=== PATIENT | female | born 1965 | race Caucasian/White ===

== ENCOUNTER → 2016-11-06 | Outpatient (CLI) | payer BC ==
[~2016-11-06] MED LIST: AMLO10TA4 PO; DOCU100T10 PO; FERR325C PO; HYDR-4246 PO; IBUP-1547 PO; TAMO20TA4 PO
== END ==
LOC: WC.BC 13:26
PROVIDERS: ATTEND Family Medicine
DX: C50.912 Malignant neoplasm of unspecified site of left female breast (principal); Z08 Encounter for follow-up examination after completed treatment for malignant neoplasm
CPT/HCPCS: 77062; G0204

== ENCOUNTER 2016-11-07 05:33 | Day surgery (SDC) | payer BC ==
[2016-11-07] VITALS (27 sets, daily range): BP systolic 122–158; BP diastolic 69–91; PULSE 49–76; RESP 12–18; TEMP 96.6–98.2; O2SAT 94–100; Ht 170.2 cm; Wt 55.0 kg
[~2016-11-07] VITALS: Ht 170.2 cm; Wt 55.0 kg
[~2016-11-07 05:33] MED LIST changes: -HYDR-4246 PO; -IBUP-1547 PO
[2016-11-07 06:26] LABS: BLOOD, URINE 2+ (NEGATIVE); COLOR,URINE YELLOW (YELLOW); LEUKOCYTE ESTERASE ,URINE NEGATIVE (NEGATIVE); NITRITE,URINE NEGATIVE (NEGATIVE); UROBILINOGEN,URINE 0.2 EU/DL (NORMAL)
[2016-11-07 06:27] LABS: BASOPHILS % (AUTO) 0.5 % (0-2); HCT - HEMATOCRIT 40.9 % (36-46); HGB - HEMOGLOBIN 13.5 GM/DL (12-16); LYMPHOCYTES # (AUTO) 1.5 T/MM3 (1-4.8); LYMPHOCYTES % (AUTO) 35.2 % (23-45); MEAN CORPUSCULAR HGB 30.1 UUG (26-34); MEAN CORPUSCULAR VOLUME 91.3 UM3 (80-100); MEAN PLATELET VOLUME 9.9 UM3 (9.4-12.4); MONOCYTES # (AUTO) 0.2 T/MM3 (0-0.8); MONOCYTES % (AUTO) 4.5 % (0-9.0); NEUTROPHILS #(AUTO)-ABSOLUTE 2.5 T/MM3 (1.8-7.7); NEUTROPHILS % (AUTO) 58.8 % (33-66); RED BLOOD COUNT 4.48 M/MM3 (4.00-5.20); WBC - WHITE BLOOD COUNT 4.2 T/MM3 (4.5-11.0)
[2016-11-07] MEDS: LR 1,000 ML IV SCH ×2 (06:32→10:06)
[2016-11-07 06:39] LABS: BACTERIA,URINE TRACE (NEGATIVE); RBC,URINE NONE SEEN /HPF (0-3); WBC,URINE NONE SEEN /HPF (0-5)
[2016-11-07 06:53] LABS: ALBUMIN/GLOBULIN RATIO 1.3 RATIO (1.1-2.2); ALKALINE PHOSPHATASE 46 U/L (38-126); ALT (SGPT) 27 U/L (9-52); ANION GAP 11 MEQ/L (5-15); AST (SGOT) 33 U/L (14-36); BUN/CREATININE RATIO 21 RATIO (6-26); CHLORIDE 104 MEQ/L (98-107); CO2 - CARBON DIOXIDE 28 MEQ/L (22-30); CREATININE 0.7 MG/DL (0.7-1.2); GLOMERULAR FILTRATION RATE 88; GLUCOSE 105 MG/DL (65-110); POTASSIUM 4.4 MEQ/L (3.6-5); SODIUM 143 MEQ/L (134-144)
[2016-11-07] MEDS ORDERED: LIDOCAINE 1% (10mg/ml) 2ml SDV INJ ONE (07:00)
[2016-11-07] MEDS ORDERED: BUPIVACAINE 0.25% (2.5mg/ml) INJ 30ml SDV ONE (07:13)
--- NOTE | 2016-11-07 07:16 | ANESPREOP ---
Anesthesia Record Date and Time DATE: 11/07/16 TIME: 07:14 Pre-Op Diagnosis menorrhagia, thickened endometrium Proposed Surgical Procedure ROBOTIC LAP HYST Allergies: Coded Allergies: erythromycin base (Verified Allergy, Intermediate, HIVES, 11/07/16) azithromycin (Verified Allergy, Unknown, HIVES, 11/07/16) Ht/Wt/BMI Height: 5 ' 7.00 " Weight: 55.000 kg BMI: 19.0 kg/m2 Vital Signs Date Time Temp Pulse Resp B/P Pulse Ox O2 Delivery O2 Flow Rate FiO2 11/07/16 06:07 98.2 76 13 130/90 100 Room Air Medications Inpatient Medications Current Medications Medications (Trade) Dose Ordered Sig/Abram Start Time Stop Time Status Last Admin Dose Admin Lactated Ringer's (Lactated Ringers) 1,000 ml @ 100 mls/hr Q10H 11/07/16 07:00 11/07/16 06:32 100 MLS/HR Amlodipine Besylate (Norvasc) 10 Mg Tablet, 10 MG PO HS, (Reported) Last Taken: on 11/06/16 1800 Docusate Sodium (Stool Softener) 100 Mg Tablet , 1 TAB PO DAILY, (Reported) Last Taken: on 11/06/16 1800 Ferrous Sulfate (Iron) 325 Mg Capsule.er, 1 TAB PO DAILY, (Reported) BEST WITH FOOD. Last Taken: on 11/06/16 0800 Tamoxifen Citrate (Tamoxifen Citrate) 20 Mg Tablet, 1 TAB PO DAILY, (Reported) Last Taken: on 11/06/16 1800 Currently on Beta Herb: No Medical/Surgical History Anesthesia PMH: Reports: *Hypertension, Arthritis, Cancer (L BREAST CA), Denies : *Diabetes, Anesthesia Reactions ( NO AIRWAY ISSUES KNOWN-N&V), Clotting Problems, Glaucoma, Malignant Hyperthermia, Renal Disease, Sleep Apnea, Thyroid Disease Smoking Status: Never smoker Use Chewing Tobacco?: No Second Hand Exposure: No Substance Use Type: does not use Alcohol Intake: none HX of Last Menstrual Period: OCTOBER 2016 Past Surgical History Orthopedic Surgeries: Yes - L SHOULDER REPOSITION Abdominal Surgeries: Genitourinary Surgeries: Cardiac Surgeries: Endocrine Surgeries: Reproductive Surgeries: Yes - L BREAST LUMPECTOMY Neurological Surgeries: Ear Surgeries: Nose Surgeries: Throat Surgeries: Other Surgeries: Yes - L BREAST LUMPECTOMY Anesthesia Adverse Reactions: FOUND nausea and vomiting Family Hx of Anesthesia Advers: none Hx of Motion Sickness: Yes Pertinent Findings Laboratory Tests 11/07/16 06:03 11/07/16 06:08 Test 11/07/16 05:42 Urine Test Negative (NEGATIVE) EKG Rhythm: Sinus Bradycardia Physical Exam Respiratory: Bilat breath sounds equal, Lungs clear Cardiovascular: FOUND Regular rate, rhythm, FOUND No murmur Airway Assessment Mallampati Score: I TMD: 3 Fingerbreadths ASA: 2 Plan Anesthesia Plan: GETA Discussion Discussed risks/options/alternatives of anesthesia and questions answered. Patient consents. Nursing pain assessment noted. Present: Spouse Attestation Statement Prior to the delivery of any anesthetic medication, I examined the patient, developed the plan, obtained the patient's consent and discussed the risk and benefits of the procedure with the patient/guardian. ISA JACKSON CRNA Nov 07, 2016 07:16
[2016-11-07] MEDS ORDERED: MIDAZOLAM 2mg/2ml INJECTION IV ONE (07:30)
[2016-11-07] MEDS ORDERED: SCOPOLAMINE 1.5 MG PATCH TD ONE (07:30)
[2016-11-07] MEDS ORDERED: FENTANYL 250mcg/5ml INJECTION ONE (07:38)
[2016-11-07] MEDS ORDERED: LACRI-LUBE EYE OINT 3.5 G TUBE ONE (07:56)
[2016-11-07] MEDS ORDERED: LIDOCAINE (2%) 100 MG/5 ML PF SYRINGE IV ONE (07:56)
[2016-11-07] MEDS ORDERED: CEFAZOLIN 1 GRAM INJECTION IV ONE (08:00)
[2016-11-07] MEDS ORDERED: DEXAMETHASONE 4mg/ml - 1ml INJECTION ONE (08:07)
[2016-11-07] MEDS ORDERED: GLYCOPYRROLATE 0.4mg/2ml INJECTION ONE (08:07)
[2016-11-07] MEDS ORDERED: ONDANSETRON 4mg/2ml INJECTION ONE (09:36)
[2016-11-07] MEDS ORDERED: D5LR 1,000 ML IV SCH ×2 (09:46→15:45)
--- NOTE | 2016-11-07 09:49 | GYNOPNOTE1 ---
CERTIFIED MEDICINE AIDE Postoperative Note Date of Operation: 11/07/16 Preoperative Diagnosis: Menorrhagia Preoperative Dx Comments h/o breast cancer Taking tamoxifen Thickened endometrium Postoperative Diagnosis: Same as Preoperative Postoperative Dx Comments Enlarged gallbladder Hysterectomy: RALH BSO Surgeon: Codey Irvin MD Anesthesia Provider: Ian Perez CRNA Anesthesia Type: general Complications: None Estimated Blood Loss: 50 CODEY IRVIN MD Nov 07, 2016 09:49
[2016-11-07] MEDS ORDERED: MORPHINE SULFATE 4 MG SYRINGE IV PRN (10:00)
[2016-11-07] MEDS ORDERED: METOCLOPRAMIDE 10mg/2ml INJECTION IV PRN (10:00)
[2016-11-07] MEDS ORDERED: IBUPROFEN 800 MG TABLET PO PRN (10:00)
[2016-11-07] MEDS ORDERED: ONDANSETRON 4mg/2ml INJECTION IV PRN (10:00)
[2016-11-07] MEDS ORDERED: HYDROMORPHONE 2mg/ml INJECTION IV PRN (10:15)
--- NOTE | 2016-11-07 10:28 | ANESPO ---
Post-Op Note Date 11/07/16 Time: 10:27 Status Pt Participated in Evaluation: Pt participated in person Vital Signs Date Time Temp Pulse Resp B/P Pulse Ox O2 Delivery O2 Flow Rate FiO2 11/07/16 10:20 16 11/07/16 10:05 55 134/79 98 Room Air 11/07/16 09:48 97.2 Respiratory Function: Airway patent, Regular respirations Cardiovascular Function: Regular pulse Mental Status: Alert/oriented Pain Level Intensity: 5 (medicated in pacu) Hydration: IV infusing Complications during Recovery None apparent Follow-Up Instructions Instructions Per Surgeon PARVEZ ROTMHAN CRNA Nov 07, 2016 10:28
[2016-11-07] MEDS: HYDROCODONE/APAP 5 mg/325 mg TABLET PO PRN ×2 (11:04→15:13)
--- NOTE | 2016-11-07 11:19 | NUR ---
Heart rate Pts heart rate 50-60bpms. Pts HR was 50-60s before Pt got to me. Ori Irwin RN contacted at this time to verify if she had notified Dr. Irvin of Pts heart rate. Ori verified she notified Dr. Irvin about Pts heart rate before she transferred Pt to floor. Will continue to monitor.
--- NOTE | 2016-11-07 11:33 | NUR ---
Admit Pt transferred self from cart to bed. VS stable on RA. Pt denies nausea at this time. Pt rates pain a 5/10, PO Oceana was given prior to Pt being transferred to [place]. Family in room at time of transfer. Side rails up X2, call light w/in reach.
[2016-11-07] MEDS ORDERED: SIMETHICONE 80 MG CHEWABLE TABLET PO SCH (13:00)
[2016-11-07 15:14] LABS: HGB - HEMOGLOBIN 12.8 GM/DL (12-16)
--- NOTE | 2016-11-07 17:42 | GSPOSTPN ---
INTERNET CONSULTANT Post Op Progress Note 11/07/16 Post Op Check Pain: Controlled Voiding: Voiding Nausea and Vomiting: No Nausea/Vomiting Ambulating: Yes Vital Signs Date Time Temp Pulse Resp B/P Pulse Ox O2 Delivery O2 Flow Rate FiO2 11/07/16 16:18 97.7 55 16 145/75 100 Room Air Urine Output: Good General: Alert and Oriented Abdomen: Soft, Non-distended Incision: Clean/Dry/Intact Extremity Assessment: Non-tender Laboratory Item Value Date Time Hemoglobin 12.8 GM/DL 11/07/16 1506 (1) Status post laparoscopic hysterectomy DC and F/U in 1-2 weeks CODEY JONES MD Nov 07, 2016 17:42
[2016-11-07] MEDS ORDERED: HYDR-4246 PO (17:44)
[2016-11-07] MEDS ORDERED: IBUP-1547 PO (17:44)
--- NOTE | 2016-11-07 18:16 | NUR ---
Discharge Pt discharged at this time via ambulatory through the main entrance in the [facility]. VS stable on RA. Prescription was sent with Pt to take to preferred pharmacy. Discharge packet and instructions given to Pt. This RN discussed medications, diet, activity, restrictions and follow up appt. IV catheter was DC'd prior to discharge, catheter tip intact.
[2016-11-08] MEDS ORDERED: DOCUSATE CALCIUM 240 MG CAPSULE PO SCH (09:00)
--- NOTE | 2016-11-08 09:11 | OPNOTEF ---
DATE OF PROCEDURE 11/07/2016 PREOPERATIVE DIAGNOSES 1. Prolonged bleeding. 2. Thickened endometrium. 3. History of breast cancer, currently taking tamoxifen. POSTOPERATIVE DIAGNOSES 1. Prolonged bleeding. 2. Thickened endometrium. 3. History of breast cancer, currently taking tamoxifen. PROCEDURE Robotic-assisted laparoscopic hysterectomy and bilateral salpingo-oophorectomy. SURGEON Dr. Wendy Irvin. ANESTHESIA General endotracheal by Ian Perez CRNA COMPLICATIONS None. EBL 50 ml FINDINGS Mildly enlarged uterus with normal-appearing adnexa. Her cervix was large and parous. Her cervix was slightly dilated and there appeared to be tissue starting to come through the os. I had previously done an endometrial biopsy and excision of tissue that was coming through the cervix in the office. This was all benign. Her liver edge appeared normal. Her gallbladder appeared enlarged. Her cecum was adhesed to the right sidewall. The appendix appeared normal. She had redundant sigmoid colon in the posterior cul-de-sac. PROCEDURE The patient was taken to the operating room where anesthesia was obtained. She was placed in the lithotomy position and prepared and draped in the normal sterile fashion. A Pimentel catheter was placed in the bladder. An open-sided speculum was placed in the vagina. The anterior cervix was grasped with an Allis. The uterus sounded to 10 cm, so a 10 cm tip was chosen for the arch manipulator as well as the 4 cm cup. A udytlp-[id number] of 0 Vicryl was placed on the cervix for retraction. The cervix was dilated to 19-Norwegian. The arch manipulator was threaded through the cervix and secured into place. All other instruments were removed from the vagina. The patient's legs were lowered, gloves were changed and attention was turned to the abdomen. All skin incisions were injected with 0.25% Marcaine prior to incision. A 12 mm supraumbilical incision was made and a Veress needle was placed. A hanging drop confirmed intraabdominal placement. The abdomen was insufflated with CO2. A 12 mm bladeless trocar was placed and camera again confirmed intraabdominal placement. The patient was placed in a small amount of Trendelenburg. 8-mm trocars were placed bilaterally approximately 10 cm off the midline and slightly inferior under direct visualization. An 8 mm catering administrative assistant port was placed in the left upper quadrant also under direct visualization. The patient was placed in steep Trendelenburg. The bowels were swept out of the posterior cul-de-sac as best I could. She had a large amount of redundant sigmoid colon that would not come over the pelvic brim. The robot was brought up to the bedside and docked. A fenestrated bipolar was placed in the left hand and monopolar scissors in the right hand. The ureters were easily identified. The left round ligament was cauterized and transected. The left retroperitoneum was opened. The left infundibulopelvic ligament was isolated. Prior to doing this, some of the small filmy adhesions between the sigmoid and the left pelvic sidewall were carefully taken down with sharp dissection. The left infundibulopelvic ligament was cauterized multiple times and transected with good hemostasis noted. The anterior leaf of the broad ligament was opened to the midline at the level of the vaginal cuff ring and then opened to the right round ligament. This was cauterized and transected. The right retroperitoneum was opened as well. The right infundibulopelvic ligament was isolated. I also had to take down some of the small filmy adhesions of the cecum to the right pelvic sidewall to better visualize this right ligament. The right IP ligament was cauterized multiple times and transected with good hemostasis noted. The bladder was then carefully dissected off of the anterior cervix past the level of the vaginal cuff ring using the monopolar scissors. The uterine vasculature was skeletonized bilaterally. It was cauterized multiple times and transected with good hemostasis noted. An anterior colpotomy was created and carried around circumferentially until the entire cervix had been excised from the vagina. The uterus, cervix, tubes and ovaries were all delivered through the vagina. The vaginal cuff was closed with running V-Loc suture. This was started at the right vaginal cuff angle. The cuff angles were both plicated to the ipsilateral uterosacral ligaments. The bladder was filled and no obvious leakage was noted. The pelvis was irrigated copiously. The pressure was dropped in the abdomen and good hemostasis was still noted from all of the pedicles. The robot was undocked. The pelvis was inspected one final time. The two side ports were removed under direct visualization. The abdomen was desufflated with the help of the AirSeal device and then the final two ports were removed. The fascia at the 12-mm port site was closed with a [id number] of 0 Vicryl. Hemostasis was obtained in the subcutaneous tissue with the cautery. The skin edges were closed with 4-0 Vicryl in a subcuticular manner. Dermabond was placed. Attention was returned to the vagina. The vaginal cuff was inspected and noted to be hemostatic. She did, however, have a small first-degree perineal laceration that extended into the vagina 3 or 4 cm. This was closed with running locked 2-0 Vicryl. Good hemostasis was noted. This was an incidental laceration due to the delivery of the uterus through the vagina. Sponge and sharp counts were correct. The patient tolerated the procedure well and was taken to the recovery room in good condition. RONALDO
[2016-11-10] MEDS ORDERED: SCOPOLAMINE PATCH REMOVAL TD ONE (07:45)
== END 2016-11-07 18:16 | disposition home or self-care (01) ==
LOC: SCU 05:33 → MC 05:34 → SCU 18:16
PROVIDERS: ATTEND Obstetrics & Gynecology
DX: D27.1 Benign neoplasm of left ovary (principal); N83.8 Other noninflammatory disorders of ovary, fallopian tube and broad ligament; N83.01 Follicular cyst of right ovary; I10 Essential (primary) hypertension; C50.912 Malignant neoplasm of unspecified site of left female breast; Z79.810 Long term (current) use of selective estrogen receptor modulators (SERMs); Z79.899 Other long term (current) drug therapy; Z88.1 Allergy status to other antibiotic agents
CPT/HCPCS: 36415; 58552; 80053; 81001; 81025; 85014; 85018; 85025; 86850; 86900; 86901; A6266; J0690; J1100; J1170; J2250; J2405; J3010; J7120; J7121; S0020; S2900